=== PATIENT | female | born 1970 | race Caucasian/White ===

== ENCOUNTER 2023-11-16 21:00 | Emergency (ER) | payer OTHER, SELFPAY ==
[2023-11-16 21:17] VITALS: BP 131/92
[2023-11-16 21:44] LABS: Urine Albumin Negative (Neg - Trace); Urine Bilirubin Negative (Negative); Urine Character Clear (Clear); Urine Color Yellow; Urine Glucose Negative (Negative); Urine Ketone Negative (Negative); Urine Leukocyte Negative (Negative); Urine Nitrite Negative (Negative); Urine Occult Blood Trace (Negative); Urine Urobilinogen Negative (Neg - 1+)
[2023-11-16 21:46] LABS: % Basophils 1.4 % (0-2); % Eosinophils 2.2 % (0-6); % Immature Granulocytes 0.4 % (0-0.5); % Lymphocytes 29.6 % (20.5-51.1); % Monocytes 8.1 % (1.7-9.3); % Neutrophils 58.3 % (42.2-75.2); Absolute Basophils 0.1 10^3/uL (0-0.2); Absolute Eosinophils 0.2 10^3/uL (0-0.7); Absolute Lymphocytes 2.3 10^3/uL (1.2-3.4); Absolute Monocytes 0.6 10^3/uL (0.1-0.6); Absolute Neutrophils 4.5 10^3/uL (1.4-6.5); Hematocrit 38.8 % (37.0-47.0); Hemoglobin 13.8 g/dL (12.0-16.0); Mean Corp Hgb Conc. 35.6 g/dL (33.0-37.0); Mean Corpuscular Hgb 31.5 pg (27.0-31.0); Mean Corpuscular Volume 88.6 fL (81.0-99.0); Mean Platelet Volume 8.9 fL (7.4-10.4); Nucleated Red Blood Cells % 0 %; Platelet Count 265 10^3/uL (130-400); Red Blood Cell Count 4.38 10^6/uL (4.20-5.40); Red Cell Dist. Width 12.6 % (11.5-14.5); White Blood Cell Count 7.8 10^3/uL (4.8-10.8)
[2023-11-16 21:52] LABS: Urine Red Blood Cell 0-2 /HPF (0-2)
[2023-11-16 21:53] LABS: Urine Bacteria Few (Negative); Urine White Cell 0-2 /HPF (0-5)
[2023-11-16 22:01] LABS: ALT (SGPT) 14 U/L (0-35); AST (SGOT) 22 U/L (14-36); Albumin 4.8 g/dl (3.5-5.0); Alkaline Phosphatase 113 U/L (38-126); Blood Urea Nitrogen 18 mg/dl (7-17); Calcium 9.8 mg/dl (8.4-10.2); Carbon Dioxide 23 mmol/L (22-30); Chloride 107 mmol/L (98-107); Glucose 99 mg/dl (70-99); Lipase 67 U/L (23-300); Potassium 4.2 mmol/L (3.5-5.1); Sodium 139 mmol/L (135-145); Total Bilirubin 0.6 mg/dl (0.2-1.3); Total Protein 7.8 g/dl (6.3-8.2); eGFR > 60.00
[2023-11-16 22:08] LABS: Troponin I < 0.012 ng/ml
[2023-11-17] MEDS: MOTRIN 600 MG PO (02:22)
--- NOTE | 2023-11-17 02:47 | ED.GENMED ---
History of Present Illness
General
Chief Complaint: Back Pain
Source: patient
Exam Limitations: none
Time Seen by Provider: 11/17/23 01:36
Nursing documentation reviewed up to this point in time: agreed with
History of Present Illness
History of Present Illness:
53-year female presents with multiple complaints she has had some pain in her left flank reminiscent of prior kidney stone no fever no chills no hematuria, also had some [id number] in her arms and legs, no weakness of the arms or legs also has
some dizziness, no fevers no nausea or vomiting
Past History
Past History
ED Past Medical History: Other (Kidney stones, Graves disease)
ED Past Surgical History:
Social History
Tobacco: Smoker
Alcohol: None
Drug: None
Personal: Single
Living: other
Employment: Employed
Family History
Family History: Other
Review of Systems
Review of Systems
All Other Systems: Not applicable
Constitutional: Denies fever or fatigue
EENT: Reports no symptoms
Respiratory: Reports no symptoms
Cardiac: Reports no symptoms
ABD/GI: Denies abdominal pain, nausea or vomiting
: Reports flank pain
Musculoskeletal: Reports muscle stiffness
Skin: Reports no symptoms
Neurological: Reports dizzy and numbness
Endocrine: Reports no symptoms
Hematologic/Lymphatic: Reports no symptoms
Psychiatric: Reports no symptoms
Phy Exam
Physical Exam
Physical Exam:
Physical Exam
General: no apparent distress, not acutely ill
Neck: No jaundice
Heart: s1/s2 regular rate and rhythm, no murmur. equal radial pulses.
Lungs: no acute respiratory distress. clear bilaterally
Abdomen: Soft no anterior tenderness mild tenderness in the left leg
Neuro: alert and oriented. Strength 5 out of 5 upper and lower able to lift her legs off the bed without difficulty
Skin: no rash
Psychiatric: well kept. interactive and cooperative
Extremities: No calf pain
Course
Orders/Labs/Results
Orders:
Orders
11/16/23 21:18
Electrocardiogram (*1) Urgent
Reason for Study: Chest Pain
EKG- Treatment ONCE
11/16/23 21:37
Complete Blood Count/With Diff Urgent
Comprehensive Metabolic Panel Urgent
Lipase Urgent
Troponin I Urgent
Urinalysis Reflex To Culture Urgent
Date Specimen was Collected: 11/16/23
Time Specimen was Collected: 21:18
Urine Microscopic Reflex Cult Urgent
11/17/23 02:15
CT Abd/pel Without Iv Or Oral Urgent
Comment:
Reason For Exam: left flakn pain
Ibuprofen [Motrin] 600 mg PO NOW STA
Abnormal Lab Results
11/16/23
21:37
MCH 31.5 H pg
(27.0-31.0)
BUN 18 H mg/dl
(7-17)
Ur Occult Blood Reflex Trace A
(Negative)
Urine Bacteria (Reflex) Few A
(Negative)
11/16/23 21:37
11/16/23 21:37
Vital Signs
Initial and Last Documented VS:
Initial Vital Signs
Temp Pulse Resp BP Pulse Ox
98.0 F 73 19 131/92 98
11/16/23 21:17 11/16/23 21:17 11/16/23 21:17 11/16/23 21:17 11/16/23 21:17
Last Documented Vital Signs
Temp Pulse Resp BP Pulse Ox
98.0 F 63 18 170/69 100
11/16/23 21:17 11/17/23 02:48 11/17/23 02:48 11/17/23 02:48 11/17/23 02:48
MDM/Problems Addressed
Differential Diagnosis Includes:
Radiculopathy muscle strain renal colic electrolyte abnormality
MDM/Problems Addressed:
Left flank pain
Chronic conditions affecting care:
Graves' disease, prior kidney stone
*Radiology
Radiology exam reviewed: radiology read reviewed
*Pulse Oximetry
Patient hypoxic: no
*Evaluation Manager Interpretation
Rate: Evaluation Manager- N/A
*Critical Care Note
Total Time (30-74mins, 75-104mins- exclusive of procedures): Not Applicable
Update Note
Update Note:
Update labs noted urine delta troponin noted EKG noted patient radiology report noted
ED Attending Note
-
Portions of this chart may have been created with voice recognition software.� Occasional wrong word or��sound alike� substitutions may have occurred due to the inherent limitations of voice recognition software.
Discharge Plan
Departure
Patient Disposition: Home (Routine Discharge)
Date of Disposition: 11/17/23
Time of Disposition: 03:32
Patient with high blood pressure during this ER visit?: No
Condition: Good
Discharge Problem:
Back pain
Instructions: Low Back Pain (DC), Radiculopathy (DC)
Prescriptions:
New
metaxalone 800 mg tablet
800 mg PO TID PRN (Reason: muscle pain) Qty: 14 0RF
naproxen [Naprosyn] 500 mg tablet
500 mg PO BID PRN (Reason: Pain) Qty: 30 0RF
No Action
nitrofurantoin monohyd/m-cryst 100 MG capsule
100 mg PO BID 5 Days Qty: 14 0RF
Referrals:
NONE,* [Family Provider] -
Interventions
Interventions:
*Risk Screen - Suicide Last Done: 11/17/23 02:49
*General Assessment Last Done: 11/17/23 02:49
*Neglect/Abuse Screening Last Done: 11/17/23 02:49
ED- Fall Risk Assessment Last Done: 11/17/23 02:49
*ED COVID-19 Vaccine History Last Done: 11/17/23 02:49
ED-Musculoskeletal Assessment Last Done: 11/17/23 02:28
Discharge Date and Time
Print Language: [place]
[2023-11-17 02:48] VITALS: BP 170/69
== END 2023-11-17 03:53 | disposition home or self-care (01) ==
LOC: EMR 21:00
PROVIDERS: EMERGENCY PHYSICIAN Emergency Medicine
DX: M54.9 Dorsalgia, unspecified (principal); F17.200 Nicotine dependence, unspecified, uncomplicated
CPT/HCPCS: 99285; 74176; 80053; 81003; 81015; 83690; 84484; 85025; 93005

== ENCOUNTER → 2024-08-09 09:57 | Outpatient (REF) | payer BC, SELFPAY | LOC: RAD 09:57 | PROVIDERS: ATTENDING PHYSICIAN Specialist | DX: C90.01 Multiple myeloma in remission (principal) | CPT/HCPCS: 77075 ==

== ENCOUNTER → 2025-01-19 14:42 | Outpatient (REF) | payer BC, SELFPAY | LOC: PAVMRI 14:42 | PROVIDERS: ATTENDING PHYSICIAN Specialist | DX: R42 Dizziness and giddiness (principal) | CPT/HCPCS: 70553; A9575 ==

== ENCOUNTER → 2025-05-11 12:26 | Outpatient (REF) | payer BC, SELFPAY | LOC: PAVMRI 12:26 | PROVIDERS: ATTENDING PHYSICIAN Specialist | DX: G95.9 Disease of spinal cord, unspecified (principal) | CPT/HCPCS: 72156; A9575 ==